=== PATIENT | female | born 1955 | race Caucasian/White ===

== ENCOUNTER → 2023-08-04 | Outpatient (CLI) | payer BC | LOC: M RAD 09:01 | PROVIDERS: ATTEND Physician Assistant | DX: M76.21 Iliac crest spur, right hip (principal); M16.11 Unilateral primary osteoarthritis, right hip; D49.512 Neoplasm of unspecified behavior of left kidney; Z96.642 Presence of left artificial hip joint | CPT/HCPCS: 78315; A9503 ==

== ENCOUNTER → 2023-12-12 | Outpatient (CLI) | payer BC ==
[~2023-12-12] MED LIST: ISOVUE-300 61% 100ML VIAL As Ordered ONE; LIDOCAINE 1% MDV 20ML VIAL As Ordered ONE; methylPREDNISolone SUSP 40MG/ML 1ML VIAL (DEPO MEDROL) As Ordered ONE
== END ==
LOC: M RAD 13:56
PROVIDERS: ATTEND Physician Assistant
DX: M16.11 Unilateral primary osteoarthritis, right hip (principal)
CPT/HCPCS: 20610; 77002; J1010; Q9967